=== PATIENT | female | born 2000 ===

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

== ENCOUNTER 2022-06-05 09:29 | Outpatient (REF) | payer SELFPAY ==
--- NOTE | ~2022-06-05 | XR_ITS ---
EXAMINATION: XR HAND, RIGHT CLINICAL INFORMATION: M79.641 - Pain in right hand. Fracture right fifth finger. COMPARISON: Outside radiographs right fifth finger 06/01/2022 ([facility]). TECHNIQUE: PA, lateral, and oblique views of the right hand. FINDINGS: There is a nondisplaced hairline fracture fifth finger distal phalangeal tuft similar to outside exam 06/01/2022. There is no acute fracture or dislocation or destructive process. No periostitis. Normal bony mineralization. XR/XR hand RT min 3V IMPRESSION: Nondisplaced hairline fracture fifth finger distal phalangeal tuft.
== END 2022-06-05 09:30 | disposition home or self-care (01) ==
LOC: HO.HOSX 09:29
PROVIDERS: Visit Provider Orthopaedic Surgery
DX: S62.636B Displaced fracture of distal phalanx of right little finger, initial encounter for open fracture (principal); X58.XXXA Exposure to other specified factors, initial encounter; Y93.9 Activity, unspecified; Y92.9 Unspecified place or not applicable; Y99.9 Unspecified external cause status
CPT/HCPCS: 73130; 99202

== ENCOUNTER 2022-07-04 12:06 | Outpatient (REF) | payer MEDICAID, SELFPAY ==
--- NOTE | ~2022-07-04 | XR_ITS ---
EXAMINATION: XR HAND, RIGHT CLINICAL INFORMATION: M79.641 - Pain in right hand. Fracture right fifth finger. COMPARISON: Radiographs right hand 06/05/2022, outside radiographs right fifth finger 06/01/2022 TECHNIQUE: Right hand is imaged in 3 views. FINDINGS: There is a nondisplaced hairline fracture fifth finger distal phalangeal shaft. The fracture is less distinct showing interval healing. No acute bony abnormality. No destructive process. No dislocation. XR/XR hand RT min 3V IMPRESSION: Healing nondisplaced hairline fracture fifth finger distal phalangeal shaft.
== END 2022-07-04 12:07 | disposition home or self-care (01) ==
LOC: HO.HOSX 12:06
PROVIDERS: Visit Provider Orthopaedic Surgery
DX: S62.636D Displaced fracture of distal phalanx of right little finger, subsequent encounter for fracture with routine healing (principal); X58.XXXD Exposure to other specified factors, subsequent encounter
CPT/HCPCS: 73130